=== PATIENT | female | born 1960 | race Caucasian/White ===

== ENCOUNTER 2023-04-11 11:52 | Day surgery (SDC) | payer BC ==
[2023-04-11] MEDS ORDERED: Lactated Ringers 1,000 ML IV SCH (12:00)
[2023-04-11 12:09] VITALS: RESP 18
[2023-04-11] MEDS ORDERED: Versed 2 MG/2 ML Injection ONE (16:19)
[2023-04-11] MEDS ORDERED: DIPRIVAN 200 MG/20 ML IV ONE ×4 (16:19→17:28)
[2023-04-11] MEDS ORDERED: SUBLIMAZE 100 MCG/2 ML ONE (16:29)
[2023-04-11] MEDS ORDERED: GlucaGen 1 MG IM ONE (16:30)
[2023-04-11] MEDS ORDERED: Lactated Ringers 1,000 ML IV ONE (16:46)
[2023-04-11 18:11] VITALS: BP 136/99; PULSE 82; TEMP 97.1; O2SAT 94
--- NOTE | 2023-04-13 11:55 | OP ---
PROCEDURE DATE/TIME: 04/11/2023 1622 PREOPERATIVE DIAGNOSIS: Screening. 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 3) Polyps. PROCEDURE: Colonoscopy with cold snare polyp and cold forceps polyp. PROCEDURE PERFORMED BY: Zeina Baer M.D. COMPLICATIONS: None. ESTIMATED BLOOD LOSS: Minimal. ANESTHESIA: MAC. SPECIMENS: 1) Hepatic flexure polyp. 2) Ascending colon polyp. 3) Rectal polyp. HISTORY: This is a patient who presents for screening colonoscopy. Risks, benefits, alternatives have been discussed with her preoperatively. Her H&P and consent reviewed with her and confirmed. All questions answered to her satisfaction. DESCRIPTION OF PROCEDURE: She was then brought to the endoscopy suite, laid in the left lateral decubitus position. A complete time out performed. First a rectal exam was done. The scope was then gently inserted and advanced to the level of the cecum. In the cecum, there is about a 1 to 1.5 cm AVM that was benign, not bleeding and causing no issue. The appendiceal orifice and ileocecal valve were visualized. The prep was satisfactory with some liquid stool and some staining. We irrigated as much as possible and overall we had a satisfactory view. The scope was then carefully withdrawn taking a circumferential look at the mucosa. She did have pancolonic diverticulosis with multiple small diverticular pockets. These were in her ascending, transverse, descending colon. She also has multiple polyps. She had a pedunculated hepatic flexure polyp that was approximately 5 mm taken in entirety with a cold snare. A 2 to 3 mm flat ascending colon polyp taken with cold forceps and a pedunculated rectal polyp taken with cold snare that was approximately 4 to 5 mm in size. All sites were clearly visualized post-polypectomy. Polyps retrieved and all sites were hemostatic and fully removed. The scope was then fully withdrawn with no other findings. Due to the patient having multiple polyps and a satisfactory but not excellent prep, we will plan on a 3 year colonoscopy interval. I have discussed this with her family and she will be following up with me as an outpatient to discuss the final results.
== END 2023-04-11 18:15 | disposition home or self-care (01) ==
LOC: SDC 11:52
PROVIDERS: ATTEND Surgery
DX: Z12.11 Encounter for screening for malignant neoplasm of colon (principal); K55.20 Angiodysplasia of colon without hemorrhage; K57.30 Diverticulosis of large intestine without perforation or abscess without bleeding; D12.7 Benign neoplasm of rectosigmoid junction; D12.2 Benign neoplasm of ascending colon; D12.3 Benign neoplasm of transverse colon
CPT/HCPCS: J1610; J2250; J2704; J3010